=== PATIENT | male | born 1990 | race Hispanic/Latino ===

== ENCOUNTER → 2019-04-21 | Outpatient (CLI) | payer BC | END | disposition home or self-care (01) | LOC: SHCH 15:50 | PROVIDERS: ATTEND Internal Medicine Cardiovascular Disease | DX: I35.0 Nonrheumatic aortic (valve) stenosis (principal) | CPT/HCPCS: 93306 ==

== ENCOUNTER → 2019-05-26 | Outpatient (CLI) | payer OTHER | END | disposition home or self-care (01) | LOC: OIH 11:17 | PROVIDERS: ATTEND Internal Medicine Cardiovascular Disease | DX: Z13.6 Encounter for screening for cardiovascular disorders (principal) | CPT/HCPCS: 75571 ==

== ENCOUNTER 2024-01-18 10:14 | Emergency (ER) | payer OTHER ==
[~2024-01-18] VITALS: Ht 172.7 cm; Wt 79.4 kg
[2024-01-18 11:13] LABS: BASOPHILS # (AUTO) 0.03 K/uL (0.00-0.20); BASOPHILS % (AUTO) 0.3 % (0.0-5.0); EOSINOPHILS # (AUTO) 0.06 K/uL (0.00-0.70); EOSINOPHILS % (AUTO) 0.6 % (0.0-8.0); HEMATOCRIT 45.2 % (42-54); IMMATURE GRANULOCYTE ABSOLUTE 0.04 K/uL (0-1); LYMPHOCYTES # (AUTO) 0.8 K/uL (1.0-4.8); LYMPHOCYTES % (AUTO) 7.4 % (21.0-51.0); MEAN CORPUSCULAR HEMOGLOBIN 31.4 pg (27.0-33.0); MEAN CORPUSCULAR HGB CONC 35.4 g/dL (32.0-36.0); MEAN CORPUSCULAR VOLUME 88.6 fL (79-99); MONOCYTES # (AUTO) 0.4 K/uL (0.1-1.0); MONOCYTES % (AUTO) 3.3 % (3.0-13.0); NEUTROPHILS # (AUTO) 9.3 K/uL (1.8-7.7); PLATELET COUNT (AUTO) 224 K/uL (130-400); RED CELL DISTRIBUTION WIDTH 12.3 % (11.0-15.5); WHITE BLOOD COUNT (AUTO) 10.6 K/uL (4.8-10.8)
[2024-01-18] MEDS: MAG/ALUM/SIMETH 30 ML UDCUP PO ONE (11:18)
[2024-01-18] MEDS: DICYCLOMINE HCL 10 MG/5 ML ML PO ONE (11:18)
[2024-01-18] MEDS: LIDOCAINE HCL 2% VISCOUS 15 ML UDCUP PO ONE (11:18)
[2024-01-18 11:21] LABS: ALBUMIN 4.2 g/dL (3.5-5.0); BILIRUBIN,TOTAL 2.3 mg/dL (0.2-1.0); POTASSIUM 4.4 mmol/L (3.5-5.1); TOTAL PROTEIN, SERUM 7.4 g/dL (6.0-8.3)
[2024-01-18 11:25] LABS: APPEARANCE,URINE CLEAR (CLEAR); BILIRUBIN,URINE NEGATIVE (NEGATIVE); COLOR,URINE LIGHT-YELLOW (YELLOW); GLUCOSE, URINE (UA) NEGATIVE (NEGATIVE); KETONES,URINE NEGATIVE (NEGATIVE); LEUKOCYTE ESTERASE ,URINE NEGATIVE Leu/uL (NEGATIVE); NITRATE,URINE NEGATIVE (NEGATIVE); OCCULT BLOOD,URINE NEGATIVE (NEGATIVE); PH,URINE 5.5 (5.0-8.0); PROTEIN,URINE NEGATIVE (NEGATIVE); UROBILINOGEN,URINE 0.2 mg/dL (0.2-1.0)
[2024-01-18 11:31] LABS: ADD UA MICROSCOPIC NO
[2024-01-18] MEDS ORDERED: PANT40TA PO (12:29)
[2024-01-18] MEDS ORDERED: SUCR1TAB28 PO (12:29)
[2024-01-18] MEDS: PANTOPRAZOLE 40 MG TAB DR PO ONE (12:34)
[2024-01-18 12:42] VITALS: BP 133/70; PULSE 75; RESP 18; O2SAT 98
== END 2024-01-18 12:43 | disposition home or self-care (01) ==
LOC: EDH 10:14
DX: K29.00 Acute gastritis without bleeding (principal); Z79.899 Other long term (current) drug therapy; Z98.890 Other specified postprocedural states
CPT/HCPCS: 36415; 80053; 81003; 83690; 85025